=== PATIENT | male | born 1980 | race African-American/Black ===

== ENCOUNTER 2019-07-18 22:04 | Emergency (ER) | payer MEDICAID, OTHER ==
[~2019-07-18] VITALS: Ht 175.3 cm; Wt 117.9 kg
[2019-07-18] MEDS ORDERED: SODIUM CHLORIDE 0.9% 1,000 ML IV ONE (23:15)
[2019-07-18 23:27] LABS: Basophils # (auto) 0 uL; Basophils % (auto) 0.5 % (0.0-2.0); Eosinophils # (auto) 0.1 uL; Eosinophils % (auto) 1.4 % (0.0-7.0); Hematocrit 43.3 % (41.0-53.0); Hemoglobin 14.6 g/dL (13.5-17.5); Lymphocytes # (auto) 1.9 uL; Lymphocytes % (auto) 32.4 % (10.0-50.0); Mean Corpuscular Hemoglobin 28.1 pg (28.0-32.0); Mean Corpuscular Hgb Conc. 33.8 g/dL (32.0-36.0); Mean Corpuscular Volume 83.3 fL (80.0-100.0); Monocytes # (auto) 0.5 uL; Monocytes % (auto) 9.5 % (0.0-12.0); Neutrophils # (auto) 3.3 uL; Neutrophils % (auto) 56.2 % (37.0-80.0); Nucleated Red Blood Cells % 0.2 %; Platelet Count (auto) 180 10^3/uL (140-450); Red Cell Distribution Width 14.7 % (11.8-14.3); White Blood Cell 5.8 10^3/uL (4.4-10.8)
[2019-07-18 23:29] LABS: Urine Bacteria NONE SEEN /hpf (None Seen); Urine Blood Negative /uL (Negative); Urine Specific Gravity 1.038 (1.001-1.035); Urine WBC 1 /hpf (0 - 3)
[2019-07-18 23:42] LABS: INR 1.01 (0.9-1.15); Partial Thromboplastin Time 25.6 sec (23.64-32.05)
[2019-07-18 23:46] LABS: Albumin 4.1 g/dL (3.4-5.0); Calcium 9.4 mg/dL (8.5-10.1); Potassium 4.1 mmol/L (3.5-5.1)
[2019-07-18 23:55] LABS: Bilirubin, Total 0.3 mg/dL (0.2-1.0); Total Protein 8.8 g/dL (6.4-8.2)
[2019-07-19] MEDS ORDERED: InsuLIN REG 1unit/0.01ml Soln (100units/ml) IV ONE
[2019-07-19 04:00] VITALS: BP 150/93
== END 2019-07-19 04:27 | disposition home or self-care (01) ==
LOC: ER 22:08
DX: E11.65 Type 2 diabetes mellitus with hyperglycemia (principal)
CPT/HCPCS: 36415; 80053; 81001; 82010; 82962; 83036; 85025; 85610; 85730; 96361; 96374; 99283; J1815

== ENCOUNTER → 2020-02-05 | Emergency (ER) | payer MEDICAID ==
[~2020-02-05] VITALS: Ht 175.3 cm; Wt 120.2 kg
[~2020-02-05] MED LIST: ACETAMINOPHEN 500 MG TAB PO ONE; IBUPROFEN 600 MG TAB PO ONE
[2020-02-05 22:02] LABS: Basophils # (auto) 0 10 ^3/uL (0-0.2); Eosinophils # (auto) 0 10 ^3/uL (0-0.8); Eosinophils % (auto) 0.5 % (0.0-7.0); Hematocrit 43.3 % (41.0-53.0); Hemoglobin 14.1 g/dL (13.5-17.5); Lymphocytes # (auto) 0.6 10 ^3/uL (0.4-5.4); Lymphocytes % (auto) 12.5 % (10.0-50.0); Mean Corpuscular Hemoglobin 27.6 pg (28.0-32.0); Mean Corpuscular Hgb Conc. 32.5 g/dL (32.0-36.0); Mean Corpuscular Volume 84.9 fL (80.0-100.0); Monocytes # (auto) 0.7 10 ^3/uL (0-1.3); Monocytes % (auto) 13.5 % (0.0-12.0); Neutrophils # (auto) 3.6 10 ^3/uL (1.6-8.6); Neutrophils % (auto) 72.5 % (37.0-80.0); Platelet Count (auto) 164 10^3/uL (140-450); Red Cell Distribution Width 15.1 % (11.8-14.3)
[2020-02-05 22:22] LABS: Albumin 3.9 g/dL (3.4-5.0); Calcium 9.1 mg/dL (8.5-10.1); Potassium 4.2 mmol/L (3.5-5.1)
[2020-02-05 22:30] LABS: BUN/Creatinine Ratio 8.4; Bilirubin, Total 0.3 mg/dL (0.2-1.0); CRP High Sensitivity 2.58 mg/dL (< 0.3); Total Protein 8.7 g/dL (6.4-8.2)
[2020-02-05 23:15] VITALS: BP 143/87
== END | disposition home or self-care (01) ==
LOC: ER 17:30
DX: U07.1 COVID-19 (principal); B34.9 Viral infection, unspecified
CPT/HCPCS: 36415; 71045; 80053; 85025; 86141; 99284; C9803; U0003

== ENCOUNTER 2020-02-13 12:02 | Inpatient (IN) | payer MEDICAID ==
[~2020-02-13] VITALS: Ht 175.3 cm; Wt 139.5 kg
[2020-02-13] MEDS ORDERED: AZITHROMYCIN 500MG/ 250ML 250 ML IV ONE (12:45)
[2020-02-13] MEDS ORDERED: methylPREDNISolone SOD SUCC 125 MG/2 ML VL IV ONE (12:45)
[2020-02-13] MEDS ORDERED: ZINC SULFATE 220mg CAP or TAB PO ONE (12:45)
[2020-02-13] MEDS ORDERED: PANTOPRAZOLE 40 MG/10 ML VIAL INJ IV ONE (12:45)
[2020-02-13] MEDS ORDERED: ENOXAPARIN SOD 100 MG/1 ML SYRINGE SC ONE (12:45)
[2020-02-13] MEDS ORDERED: ASCORBIC ACID 500 MG TAB PO ONE (12:45)
[2020-02-13 14:24] LABS: Basophils # (auto) 0 10 ^3/uL (0-0.2); Basophils % (auto) 0.4 % (0.0-2.0); Eosinophils # (auto) 0 10 ^3/uL (0-0.8); Eosinophils % (auto) 0.2 % (0.0-7.0); Hematocrit 41.4 % (41.0-53.0); Hemoglobin 13.5 g/dL (13.5-17.5); Lymphocytes # (auto) 0.6 10 ^3/uL (0.4-5.4); Lymphocytes % (auto) 8.4 % (10.0-50.0); Mean Corpuscular Hemoglobin 27.4 pg (28.0-32.0); Mean Corpuscular Hgb Conc. 32.7 g/dL (32.0-36.0); Monocytes # (auto) 0.6 10 ^3/uL (0-1.3); Monocytes % (auto) 7.6 % (0.0-12.0); Neutrophils # (auto) 6.2 10 ^3/uL (1.6-8.6); Neutrophils % (auto) 83.4 % (37.0-80.0); Platelet Count (auto) 305 10^3/uL (140-450); Red Blood Cells 4.93 10^6/uL (4.5-5.90); Red Cell Distribution Width 14.4 % (11.8-14.3); White Blood Cell 7.5 10^3/uL (4.4-10.8)
[2020-02-13 14:44] LABS: Albumin 2.9 g/dL (3.4-5.0); Calcium 8.9 mg/dL (8.5-10.1); Potassium 4.5 mmol/L (3.5-5.1)
[2020-02-13 14:53] LABS: BUN/Creatinine Ratio 10.4; Bilirubin, Total 0.3 mg/dL (0.2-1.0); CRP High Sensitivity 12.2 mg/dL (< 0.3); Total Protein 8.2 g/dL (6.4-8.2)
[2020-02-13] MEDS ORDERED: MORPHINE SULF INJ 2 MG/ML SYRINGE 1ML IV PRN (15:15)
[2020-02-13] MEDS ORDERED: NITROGLYCERIN 0.4 MG SL TAB SL PRN (15:15)
[2020-02-13] MEDS ORDERED: LORazepam 0.5 MG TAB PO PRN (15:15)
[2020-02-13] MEDS ORDERED: DOCUSATE SOD 100 MG CAP PO PRN (15:15)
[2020-02-13] MEDS ORDERED: ACETAMINOPHEN 325 MG TAB PO PRN (15:15)
[2020-02-13] MEDS: ACCU-CHEK COMFORT CURVE STRIP VI SCH ×3 (16:00→23:27)
[2020-02-13] MEDS ORDERED: INSULIN LANTUS (GLARGINE) 1 /0.01ml (100units/ml) SC ONE ×2 (16:00)
[2020-02-13] MEDS: InsuLIN REG 1unit/0.01ml Soln (100units/ml) SC SCH ×3 (16:00→23:28)
[2020-02-13 17:00] VITALS: BP 139/81
[2020-02-13] MEDS ORDERED: METF-371 PO (18:05)
--- NOTE | 2020-02-13 19:22 | NUR ---
Opening Shift Note Assumed care of patient, awake and alert. No S/S of distress/SOB or pain. Bed is low, locked with 2x side rails up. Call light is within reach. Instructed on POC and to call for assist PRN, will continue to monitor for changes Q1hr and PRN.
--- NOTE | 2020-02-13 20:31 | NUR ---
HOSPITALIST Called/paged hospitalist JOSE called re:pt blood sugar levels . Waiting for call back. Continue care.
[2020-02-13] MEDS: DOXYCYCLINE 100 MG TAB/CAP PO SCH (21:00)
--- NOTE | 2020-02-13 21:09 | NUR ---
hospitalist returned call hospitalist Yayo returned call, updated on patient status and reason for call,no new orders received and stated to follow protocol. Continue care.
[2020-02-13 23:25] VITALS: BP 143/83
--- NOTE | 2020-02-13 23:31 | NUR ---
HOSPITALIST Called/paged hospitalist JOSE called re:pt blood sugar levels . Waiting for call back. Continue care.
--- NOTE | 2020-02-13 23:36 | NUR ---
hospitalist returned call hospitalist Yayo returned call, updated on patient status and reason for call, new orders received , order read back and verified by winifred Zee. Continue care.
[2020-02-13] MEDS ORDERED: DEXTROSE (50%) 50ML SYRG IV PRN (23:45)
[2020-02-14] MEDS: ACCU-CHEK COMFORT CURVE STRIP VI SCH ×7 (00:11→23:29)
[2020-02-14] MEDS: InsuLIN REG 1unit/0.01ml Soln (100units/ml) SC SCH ×7 (03:44→23:30)
[2020-02-14 05:00] VITALS: BP 131/79
--- NOTE | 2020-02-14 07:24 | NUR ---
end of shift notes will endorse care to day shift RN , pt [id number] , no sign and symptoms of distress or sob
--- NOTE | 2020-02-14 07:29 | NUR ---
Respiratory note: POX CHECK, ASSESSED PT HR 78, RR 16, SPO2 91% ON2L N/C. NO RESP DISTRESS NOTED.
[2020-02-14 08:07] LABS: Eosinophils # (auto) 0 10 ^3/uL (0-0.8); Hemoglobin 13.4 g/dL (13.5-17.5)
[2020-02-14 08:09] LABS: Basophils # (auto) 0 10 ^3/uL (0-0.2); Basophils % (auto) 0.3 % (0.0-2.0); Hematocrit 41.3 % (41.0-53.0); Lymphocytes # (auto) 0.5 10 ^3/uL (0.4-5.4); Lymphocytes % (auto) 8.2 % (10.0-50.0); Mean Corpuscular Hgb Conc. 32.5 g/dL (32.0-36.0); Monocytes # (auto) 0.7 10 ^3/uL (0-1.3); Monocytes % (auto) 12.2 % (0.0-12.0); Neutrophils # (auto) 4.6 10 ^3/uL (1.6-8.6); Neutrophils % (auto) 79.3 % (37.0-80.0); Nucleated Red Blood Cells % 0.2 %; Platelet Count (auto) 341 10^3/uL (140-450); Red Blood Cells 4.97 10^6/uL (4.5-5.90); Red Cell Distribution Width 14.3 % (11.8-14.3); White Blood Cell 5.9 10^3/uL (4.4-10.8)
[2020-02-14 08:24] LABS: Albumin 2.8 g/dL (3.4-5.0); Calcium 9.4 mg/dL (8.5-10.1); Magnesium 2.8 mg/dL (1.6-2.6); Potassium 4.4 mmol/L (3.5-5.1)
[2020-02-14 08:34] LABS: BUN/Creatinine Ratio 15.7; Bilirubin, Total 0.3 mg/dL (0.2-1.0); CRP High Sensitivity 9.76 mg/dL (< 0.3)
[2020-02-14 09:00] VITALS: BP 138/95
[2020-02-14] MEDS: DOXYCYCLINE 100 MG TAB/CAP PO SCH (10:13)
[2020-02-14 13:00] VITALS: BP 145/99
--- NOTE | 2020-02-14 15:36 | NUR ---
ss consult Per ss consult patient wants advanced directive information. Jennifer pulling unit operator has provided patient with advanced directive in [facility] unit. Addendum: 02/14/20 at 1537 by Mackenzie Purdy Amended: Links added.
--- NOTE | 2020-02-14 16:00 | NUR ---
DR URIBE BEDSIDE NEW ORDERS TO BE CARRIED OUT.
[2020-02-14 17:00] VITALS: BP 159/94
--- NOTE | 2020-02-14 19:36 | NUR ---
ENDORSED CARE TO NIGHT RN
[2020-02-14] MEDS ORDERED: INSULIN LANTUS (GLARGINE) 1 /0.01ml (100units/ml) SC SCH (22:00)
[2020-02-14 22:14] VITALS: BP 139/88
[2020-02-15] MEDS: ACCU-CHEK COMFORT CURVE STRIP VI SCH ×3 (03:35→11:56)
[2020-02-15] MEDS: InsuLIN REG 1unit/0.01ml Soln (100units/ml) SC SCH ×3 (03:38→11:57)
[2020-02-15 05:00] VITALS: BP 131/80
--- NOTE | 2020-02-15 07:34 | NUR ---
Respiratory note: POX CHECK, PT AWAKE AND ALERT , NO RESP DISTRESS NOTED. HR 74, RR 16, SPO2 96%
--- NOTE | 2020-02-15 07:48 | NUR ---
Opening Shift Note Assumed care of patient, awake and alert. No S/S of distress/SOB or pain. Bed is low, locked with 2x side rails up. Call light is within reach. Instructed on POC and to call for assist PRN. Patient currently stating "I need to go home today no matter what, so when the doctor gets here he will need to release me because I have things that i need to do for my family. Honestly I feel much better than when I came here, so if he could just give me some pills to take at home to control everything that would be ideal. I have everything at my house for my diabetes that i have been taking care of for 10 years now." This RN educated patient about the disease process he has and importance of compliance. patient verbalized understanding. This RN will continue to monitor for changes Q1hr and PRN.
[2020-02-15 09:18] VITALS: BP 155/105
[2020-02-15] MEDS ORDERED: DexAMETHasone SOD PHOS 10MG/1ML VIAL INJ IV SCH (10:00)
[2020-02-15] MEDS ORDERED: DOXYCYCLINE 100MG/250ML 250 ML IV SCH (10:00)
[2020-02-15 13:00] VITALS: BP 147/98
[2020-02-15] MEDS ORDERED: PRED20TA2 PO (14:28)
[2020-02-15] MEDS ORDERED: FAMO20TA10 PO (14:28)
[2020-02-15] MEDS ORDERED: GLIP5TAB12 PO (14:28)
[2020-02-15] MEDS ORDERED: DOXY-346 PO (14:28)
[2020-02-15] MEDS ORDERED: METF-371 PO (14:28)
[2020-02-15] MEDS ORDERED: ALBU108A5 IN (14:28)
[2020-02-15 14:44] VITALS: BP 146/89
--- NOTE | 2020-02-15 15:27 | NUR ---
Discharge instructions given as ordered. SECURITY AND EVS FOLLOWING PATIENT. Encourage to follow up with PMD as instructed. All questions and concerns addressed. Patient verbalized understanding. Medication reconciliation form completed and copy given to patient. Home medications held in Pharmacy returned to patient, and needed vaccines given. IV removed with catheter intact, pressure dressing applied. Telemetry unit returned to ICU. Patient taken to vehicle via wheelchair with all personal belongings, accompanied by staff and family member. No distress noted at time of departure.
== END 2020-02-15 15:27 | disposition home or self-care (01) | DRG 137 ==
LOC: ER 12:02 → TELE 12:03 → TELE-EAST 16:00
PROVIDERS: ATTEND Hospitalist
DX: U07.1 COVID-19 (principal); J96.01 Acute respiratory failure with hypoxia; E11.9 Type 2 diabetes mellitus without complications; Z83.3 Family history of diabetes mellitus; Z82.49 Family history of ischemic heart disease and other diseases of the circulatory system; E66.01 Morbid (severe) obesity due to excess calories; Z68.42 Body mass index [BMI] 45.0-49.9, adult
CPT/HCPCS: 36415; 36600; 71045; 80053; 82728; 82805; 82962; 83036; 83525; 83605; 83615; 83735; 83880; 84443; 85025; 85379; 86141; 87040; 87081; 93005; C9113; G0378; J1100; J1815; J3490